=== PATIENT | female | born 1985 | race Caucasian/White ===

== ENCOUNTER → 2017-09-27 | Outpatient (CLI) | payer MEDICAID ==
[~2017-09-27] MED LIST: DIPH25CA79 PO; DOCU100C37 PO; FERR325T18 PO; FLUO10CA29 PO; IBUP-1773 PO; LABE200T3 PO; OXYC-471 PO; PREN1TAB86 PO
--- NOTE | 2017-09-27 13:47 | Diagnostic Imaging Report ---
INDICATION: survey. TECHNIQUE: Multiple real-time grayscale images were obtained over the gravid uterus. COMPARISON: None. FINDINGS: There is a single live fetus in a breech presentation. The placenta is posterior. The amniotic fluid volume is normal. heart rate was recorded at 156 beats per minute. survey demonstrates kidneys and bladder to be unremarkable. stomach is not well seen. brain is unremarkable. There is a three-vessel cord present, although the cord insertion is not well seen. The spine is unremarkable. Four-chamber heart view was not well visualized. Biometrical measurements are as follows: Biparietal 4.51 cm, age 19 weeks 5 days. Head circumference 17.06 cm, age 19 weeks 5 days. Abdominal circumference 14.43 cm, age 19 weeks 6 days. Femur length 3.34 cm, age 20 weeks 4 days. Sonographic estimate age: 20 weeks 0 days. Sonographic estimated date of delivery: 02/14/18. Estimated Weight: 328 gm (+/- 48 gm). LMP percentile: 64%. heart rate: 156 beats per minute. number: 1 of 1. IMPRESSION: Single live IUP at approximately 20 weeks gestational age with an estimated date of confinement sonographically of 02/14/2018. Note is made that the stomach, four-chamber heart, and cord insertion were not well seen on today's study and followup ultrasound could be performed. Dictated by: Dictated on workstation # [id number]
== END ==
LOC: RAD 11:41
PROVIDERS: ATTEND Obstetrics & Gynecology
DX: Z36.89 Encounter for other specified antenatal screening (principal); Z3A.20 20 weeks gestation of pregnancy
CPT/HCPCS: 76805